=== PATIENT | male | born 1980 | race Caucasian/White ===

== ENCOUNTER 2017-09-18 15:02 | Emergency (ER) | payer MEDICARE ==
[~2017-09-18] VITALS: Ht 170.2 cm; Wt 70.3 kg
[2017-09-18] MEDS ORDERED: Naprosyn500 MG PO (16:08)
[2017-09-18] MEDS ORDERED: Ultram50 MG PO (16:08)
== END 2017-09-18 16:17 | disposition home or self-care (01) ==
LOC: ER 15:02
DX: S57.82XA Crushing injury of left forearm, initial encounter (principal); W23.0XXA Caught, crushed, jammed, or pinched between moving objects, initial encounter; F17.200 Nicotine dependence, unspecified, uncomplicated
CPT/HCPCS: 73080; 73090; 99283